=== PATIENT | female | born 1990 | race Caucasian/White ===

== ENCOUNTER 2018-05-10 06:13 | Inpatient (IN) | payer BC, OTHER ==
[2018-05-10] MEDS: LACTATED RINGERS 1,000 ML IV SCH ×3 (06:30→14:50)
[2018-05-10] MEDS ORDERED: TERBUTALINE 1 MG/ML VIAL SQ PRN (06:41)
[2018-05-10] MEDS ORDERED: METHYLERGONOVINE 0.2 MG/ML 1 ML AMP IM PRN (06:41)
[2018-05-10] MEDS ORDERED: LIDOCAINE 1% INJ 10MG/ML (20 ML MDV) SQ PRN (06:41)
[2018-05-10] MEDS ORDERED: BUTORPHANOL 1 MG/ML 1 ML VIAL IV PRN (06:41)
[2018-05-10] MEDS ORDERED: OXYTOCIN 10 UNIT/ML 1 ML VIAL IM PRN (06:41)
[2018-05-10] MEDS ORDERED: CARBOPROST TROMETHAMINE 250 MCG/ML 1 ML AMP IM PRN (06:41)
[2018-05-10] MEDS ORDERED: OXYTOCIN 20 UNITS/1000 ML NS 1,000 ML IV SCH ×2 (06:45→13:30)
[2018-05-10] MEDS ORDERED: CLINDAMYCIN 900 MG in DEXTROSE 5% IN WATER 50 ML IVPB ONE ×2 (07:00)
[2018-05-10 07:07] LABS: Basophils % (A) 0 %; Eosinophils # (A) 0.2 k/uL (0-0.7); Eosinophils % (A) 3 %; Lymphocytes # (A) 1.8 k/uL (1.0-4.8); Lymphocytes % (A) 22 %; MCH 31.2 pg (25.0-35.0); MCHC 34.3 g/dL (31.0-37.0); MCV 90.9 fL (80.0-100.0); Monocytes # (A) 0.4 k/uL (0-1.0); Monocytes % (A) 5 %; Neutrophils # (A) 5.6 k/uL (1.3-7.7); Neutrophils % (A) 69 %; Platelet Count 164 k/uL (150-450); RBC 3.85 m/uL (3.80-5.40); RDW 14.7 % (11.5-15.5); WBC 8.2 k/uL (3.8-10.6)
[2018-05-10 07:26] VITALS: BMI 36.6
--- NOTE | 2018-05-10 10:22 | P.HPOB ---
History of Present Illness H&P Date: 05/10/18 Chief Complaint: 40-0/7 weeks, labor The patient is a 27-year-old 2 para 1001 admitted at 40-0/7 weeks as established by last menstrual period and confirmed bilateral week ultrasound. Her has been uncomplicated and group B strep status is positive. On labor and delivery, all signs reassuring. She made notable cervical change from previous examination and while in triage. As result, she is admitted for active management. Obstetrical history: 2 para 1001 with 1 term vaginal delivery without complications. Current statistics are listed in history present illness. EDC of 05/10/2018 was established by last menstrual period and confirmed by an 11 week ultrasound. Laboratory workup done Schutze blood type of O+ with a negative antibody screen. Rubella status is immune. The remainder of the laboratory workup was within normal limits. Early Glucola as well as second trimester Glucola were normal and group B strep status is positive. Gynecologic history: Unremarkable with no history of any infections to include STDs. Review of Systems Review of systems is confined to history of present illness. Past Medical History Past Medical History: Asthma History of Any Multi-Drug Resistant Organisms: None Reported Additional Past Surgical History / Comment(s): wisdom teeth removed 2011, carpal tunnel of right hand in august 2017 Past Anesthesia/Blood Transfusion Reactions: No Reported Reaction Past Psychological History: Anxiety Additional Psychological History / Comment(s): medicated Smoking Status: Never smoker Past Alcohol Use History: None Reported Past Drug Use History: None Reported - Past Family History Mother Family Medical History: No Reported History Medications and Allergies Home Medications Medication Instructions Recorded Confirmed Type Budesonide [Pulmicort Flexhaler] 90 mcg INHALATION DIRECTED PRN 07/03/1512/19 History Vit 84/Iron/FA 1/Dha 1 each PO DAILY 07/03/15 05/10/18 History [Prenate Essential Softgel] Albuterol Inhaler [Ventolin Hfa 1 - 2 puff INHALATION RT-Q6H PRN 05/10/18 History Inhaler] Escitalopram [Lexapro] 20 mg PO DAILY 05/10/18 05/10/18 History Allergies Allergy/AdvReac Type Severity Reaction Status Date / Time penicillin G Allergy Rash/Hives Verified 05/10/18 06:22 Exam Vital Signs Temp Pulse Resp BP Pulse Ox 05/10/18 07:22 97.7 F 92 16 125/86 97 05/10/18 06:39 97.7 F 92 16 125/86 97 Intake and Output 05/09/18 05/10/18 05/10/18 22:59 06:59 14:59 Other: Weight 93.894 kg 93.894 kg In general, this is a well-developed, well-nourished white female in no acute distress. Her heart has a regular rhythm and rate without murmur. Her lungs are clear to auscultation bilaterally in all agee. Her abdomen is gravid, nondistended, has normal active bowel sounds, is soft, nontender, and without any palpable masses aside from the uterine fundus. Her extremities are without any cyanosis, clubbing, or edema and are nontender to palpation bilaterally. Digital cervical examination demonstrates her cervix to be approximately 6 cm dilated, 70% effaced, with the vertex in presentation at -2-3 station. The membranes are left intact at this time. Results Result Diagrams: 05/10/18 06:56 Assessment and Plan (1) Active labor at term Current Visit: Yes Status: Acute Code(s): IUO5559 - SNOMED Code(s): 15439083 (2) Group B streptococcal infection in Current Visit: Yes Status: Acute Code(s): O98.819 - OTH MATERNAL INFEC/ PARASTC DISEASES COMP PREG, UNSP TRI SNOMED Code(s): 981204741 Plan: The patient is admitted for active management of labor. She had clindamycin antibiotic prophylaxis started for group B strep upon admission as she has a penicillin ALLERGY. She has continued to change her cervix on her own the her contraction pattern is somewhat irregular. As we approached before hour george for antibiotic prophylaxis, Pitocin augmentation will be added. She will have close maternal and surveillance and expectant management will be practiced. She is a good candidate for either IV or epidural analgesia and has chosen to have an epidural placed at this time.
[2018-05-10] MEDS ORDERED: SODIUM CHLORIDE 0.9% 100 ML BAG ONE (10:39)
[2018-05-10] MEDS ORDERED: fentaNYL (PF) 50 MCG/ML 5 ML AMP ONE (10:39)
[2018-05-10] MEDS ORDERED: ROPIVACAINE 5MG/ML 20ML VIAL ONE (10:39)
[2018-05-10] MEDS ORDERED: diphenhydrAMINE 25 MG CAP PO PRN (13:18)
[2018-05-10] MEDS ORDERED: HYDROcodone/APAP 5-325MG 1 EACH TAB PO PRN (13:18)
[2018-05-10] MEDS ORDERED: BENZOCAINE/MENTHOL SPRAY 1 GM/SPRAY AEROSOL TOPICAL PRN (13:18)
[2018-05-10] MEDS ORDERED: SIMETHICONE 80 MG CHEWABLE PO PRN (13:18)
[2018-05-10] MEDS ORDERED: ZOLPIDEM 5 MG TAB PO PRN (13:18)
[2018-05-10] MEDS ORDERED: HYDROCORTISONE 2.5% RECTAL CREAM 30 GM TUBE RECTAL PRN (13:18)
[2018-05-10] MEDS ORDERED: ACETAMINOPHEN TAB 325 MG TAB PO PRN (13:18)
[2018-05-10] MEDS ORDERED: diphenhydrAMINE 50 MG/ML 1 ML VIAL IVP PRN ×2 (13:18)
[2018-05-10] MEDS ORDERED: LANOLIN CREAM 5 GM TUBE TOPICAL PRN (13:18)
[2018-05-10] MEDS ORDERED: WITCH HAZEL 1 EACH MED..PAD TOPICAL PRN (13:18)
[2018-05-10] MEDS ORDERED: HYDROcodone/APAP 7.5-325MG 1 EACH TAB PO PRN (13:18)
[2018-05-10] MEDS ORDERED: diphenhydrAMINE 50 MG CAP PO PRN (13:18)
--- NOTE | 2018-05-10 13:18 | P.PROBDLV ---
Vaginal Delivery Note - . Vaginal Delivery Note: The patient is a 27 year 2 para 1001 who presented at 40-0/7 weeks by good dating parameters in early active labor with all signs reassuring. Her has been uncomplicated and group B strep status is positive. On labor and delivery, she had antibody prophylaxis started for group B strep. At approximately 3-1/2 hours after the initial dose of clindamycin, Pitocin augmentation was started. She had been making slow but steady progress through the active phase of labor and had an epidural catheter placed around the onset of active phase of labor. She had spontaneous rupture of membranes for meconium -stained fluid and progressed extremely rapidly to complete and then delivered precipitously in my absence, a normal spontaneous vaginal delivery of a viable 7 lbs. 3 oz. baby boy with Apgars of 8 at 1 minute and 9 at 5 minutes delivered in the occiput anterior position. Dr. Arceo was present at or immediately after the of the infant and deliver the placenta prior to my arrival appeared was delivered spontaneously, intact, and grossly normal although it was meconium-stained. There was a grossly normal, centrally inserted three- vessel cord. Examination of the perineum and vagina demonstrated a through and through right labial laceration immediately adjacent to the clitoral marroquin which was repaired using 3-0 chromic catgut without difficulty. There were no other lacerations present. Estimated blood loss for the entire case appeared to be approximately 300 mL. There were no complications aside from a precipitous nature of the delivery, delivery in the absence of a physician. All sponge, instrument, and needle counts were correct. Both mother and infant are resting comfortably in recovery.
[2018-05-10 14:14] VITALS: RESP 16
[2018-05-10] MEDS ORDERED: ROPIVACAINE 100 MG, fentaNYL (PF) 200 MCG in SODIUM CHLORIDE 0.9% 76 ML EPIDURAL ONE (14:27)
[2018-05-10] MEDS ORDERED: CLINDAMYCIN 900 MG in DEXTROSE 5% IN WATER 50 ML IVPB SCH ×2 (15:00)
[2018-05-10] MEDS: SENNOSIDES-DOCUSATE SODIUM 1 EACH TAB PO SCH (19:57)
[2018-05-10] MEDS: IBUPROFEN 600 MG TAB PO PRN (19:57)
[2018-05-11] MEDS: IBUPROFEN 600 MG TAB PO PRN ×2 (06:47→15:13)
--- NOTE | 2018-05-11 08:54 | P.DS ---
Providers Date of admission: 05/10/18 06:39 Expected date of discharge: 05/11/18 Attending physician: Shady Diego Primary care physician: Stated None - Discharge Diagnosis(es) (1) Active labor at term Current Visit: Yes Status: Acute (2) Group B streptococcal infection in Current Visit: Yes Status: Acute (3) Normal vaginal delivery Current Visit: No Status: Acute Hospital Course: The patient is a 27-year-old 2 para 1001 admitted at 40-0/7 weeks by good dating parameters. She is admitted in early labor with all signs reassuring. Her was uncomplicated though group B strep status is positive. As result, she had antibody prophylaxis started for group B strep and the membranes were left intact. Approximately 3-1/2 hours following infusion of the first dose of antibiotics, Pitocin augmentation was started. She had previously had an epidural catheter placed for analgesia. She continued to make relatively slow progress and then spontaneous rupture of membranes for moderate meconium-stained fluid. She then progressed very quickly to complete and delivered in a precipitous fashion a viable 7 lbs. 3 oz. baby boy with Apgars of 8 at 1 minute and 9 at 5 minutes. Her course was unremarkable with vital signs remaining stable and her temperature was afebrile throughout. She was deemed stable for discharge on day #1 and was discharged home to follow-up in the office in 6 weeks' time routinely. Discharge instructions included calling for any significantly increased bleeding or fossil and lochia, significantly increased fever abdominal pain, perineal complaints, breast complaints, or anything else that concerned her. She was additionally instructed to have nothing in the vagina for at least 6 weeks time to include intercourse. She understood her instructions and agrees to follow up as noted above. Discharge medications included only continue vitamins as she has opted to breast-feed. She was otherwise to use [id number] analgesic pain medications. Maternal blood type is O+ and rubella status is immune. Procedures: #1. Antibody prophylaxis #2. Epidural analgesia #3. Pitocin augmentation #4. Precipitous normal spontaneous vaginal delivery #5. Repair of perineal/ labial laceration Patient Condition at Discharge: Good Plan - Discharge Summary New Discharge Prescriptions: No Action Budesonide [Pulmicort Flexhaler] 90 mcg INHALATION DIRECTED PRN PRN Reason: Bronchospasm Vit 84/Iron/FA 1/Dha [Prenate Essential Softgel] 1 each PO DAILY Albuterol Inhaler [Ventolin Hfa Inhaler] 1 - 2 puff INHALATION RT-Q6H PRN PRN Reason: Bronchospasm Escitalopram [Lexapro] 20 mg PO DAILY Discharge Medication List Budesonide [Pulmicort Flexhaler] 90 mcg INHALATION DIRECTED PRN 07/03/15 [ History] Vit 84/Iron/FA 1/Dha [Prenate Essential Softgel] 1 each PO DAILY [History] Albuterol Inhaler [Ventolin Hfa Inhaler] 1 - 2 puff INHALATION RT-Q6H PRN [History] Escitalopram [Lexapro] 20 mg PO DAILY 05/10/18 [History] Follow up Appointment(s)/Referral(s): Shady Diego MD [STAFF PHYSICIAN] - 6 Weeks Discharge Disposition: HOME SELF-CARE
[2018-05-11] MEDS: SENNOSIDES-DOCUSATE SODIUM 1 EACH TAB PO SCH (09:13)
[2018-05-11 12:10] VITALS: PULSE 80; TEMP 97.6
[2018-05-11 16:14] VITALS: BP 123/69
== END 2018-05-11 17:36 | disposition home or self-care (01) | DRG 807 ==
LOC: FBPOP 06:13 → 4FBP 06:39
PROVIDERS: ADMIT Obstetrics & Gynecology Obstetrics; ATTEND Obstetrics & Gynecology
PROC: 10E0XZZ Delivery of Products of Conception, External Approach (ICD-10-PCS; principal; 2018-05-10)
PROC: 0HQ9XZZ Repair Perineum Skin, External Approach (ICD-10-PCS; 2018-05-10)
PROC: 3E0R3BZ Introduction of Anesthetic Agent into Spinal Canal, Percutaneous Approach (ICD-10-PCS; 2018-05-10)
PROC: 00HU33Z Insertion of Infusion Device into Spinal Canal, Percutaneous Approach (ICD-10-PCS; 2018-05-10)
DX: O99.824 Streptococcus B carrier state complicating childbirth (principal); Z37.0 Single live birth; O99.344 Other mental disorders complicating childbirth; B95.1 Streptococcus, group B, as the cause of diseases classified elsewhere; O99.52 Diseases of the respiratory system complicating childbirth; O70.0 First degree perineal laceration during delivery; O77.0 Labor and delivery complicated by meconium in amniotic fluid; O62.3 Precipitate labor; F41.9 Anxiety disorder, unspecified; J45.909 Unspecified asthma, uncomplicated; Z3A.40 40 weeks gestation of pregnancy; Z88.0 Allergy status to penicillin; Z79.51 Long term (current) use of inhaled steroids; Z79.899 Other long term (current) drug therapy
CPT/HCPCS: 59025; 85025; 86850; 86900; 86901; 99213